=== PATIENT | male | born 1955 | race Caucasian/White ===

== ENCOUNTER → 2017-03-15 | Outpatient (CLI) | payer OTHER | LOC: KOH-I 16:27 | DX: S05.8X9A Other injuries of unspecified eye and orbit, initial encounter (principal); M79.89 Other specified soft tissue disorders | CPT/HCPCS: 70200 ==

== ENCOUNTER → 2017-03-20 | Outpatient (CLI) | payer OTHER | LOC: KOH-I 08:00 | DX: M25.551 Pain in right hip (principal); M25.851 Other specified joint disorders, right hip | CPT/HCPCS: 73721 ==